=== PATIENT | female | born 1975 | race Caucasian/White ===

== ENCOUNTER 2018-03-04 10:38 | Day surgery (SDC) | payer BC ==
[~2018-03-04] VITALS: Ht 160 cm; Wt 83.0 kg
[~2018-03-04 10:38] MED LIST: MOBIC7.5 MG PO; NAPROSYN500 MG PO; NEURONTIN400 MG PO; XANAX0.25 MG PO; ZANAFLEX2 M1 PO; ZOLOFT100 MG PO
== END 2018-03-04 12:05 | disposition home or self-care (01) ==
LOC: PAIN 10:38 → SDC 11:15 → PAIN 12:05
DX: M47.816 Spondylosis without myelopathy or radiculopathy, lumbar region (principal); M47.812 Spondylosis without myelopathy or radiculopathy, cervical region; M79.7 Fibromyalgia; M53.3 Sacrococcygeal disorders, not elsewhere classified; E78.5 Hyperlipidemia, unspecified; K21.9 Gastro-esophageal reflux disease without esophagitis; G47.33 Obstructive sleep apnea (adult) (pediatric); G62.9 Polyneuropathy, unspecified
CPT/HCPCS: J1030; S0020

== ENCOUNTER 2018-03-11 07:42 | Day surgery (SDC) | payer BC ==
[~2018-03-11] VITALS: Ht 160 cm; Wt 83.0 kg
== END 2018-03-11 09:00 | disposition home or self-care (01) ==
LOC: PAIN 07:42 → SDC 08:00 → PAIN 09:00
PROC: 3E0T33Z Introduction of Anti-inflammatory into Peripheral Nerves and Plexi, Percutaneous Approach (ICD-10-PCS; principal; 2018-03-11)
PROC: 3E0T3BZ Introduction of Anesthetic Agent into Peripheral Nerves and Plexi, Percutaneous Approach (ICD-10-PCS; principal; 2018-03-11)
PROC: BR161ZZ Fluoroscopy of Lumbar Facet Joint(s) using Low Osmolar Contrast (ICD-10-PCS; principal; 2018-03-11)
DX: M47.816 Spondylosis without myelopathy or radiculopathy, lumbar region (principal); M51.26 Other intervertebral disc displacement, lumbar region; G62.9 Polyneuropathy, unspecified; M53.3 Sacrococcygeal disorders, not elsewhere classified; M79.7 Fibromyalgia; K21.9 Gastro-esophageal reflux disease without esophagitis; E78.5 Hyperlipidemia, unspecified; G47.33 Obstructive sleep apnea (adult) (pediatric); Z98.1 Arthrodesis status
CPT/HCPCS: J1030; S0020